=== PATIENT | male | born 1975 | race American Indian/Alaskan Native ===

== ENCOUNTER 2025-08-26 12:38 | Emergency (ER) | payer OTHER, SELFPAY ==
[2025-08-26 12:39] VITALS: BP 120/87
[2025-08-26 14:16] VITALS: BMI 28.6
[2025-08-26 14:28] LABS: Hematocrit 47.2 % (39.0-52.0); Hemoglobin 16.2 g/dL (13.0-18.0); Mean Corp Hgb Conc. 34.3 g/dL (33.0-37.0); Mean Corpuscular Volume 86.1 fL (80.0-94.0); Nucleated Red Blood Cells % 0 % (-); Platelet Count 263 10^3/uL (130-400); Red Cell Dist. Width 12.0 % (11.5-14.5)
[2025-08-26 14:46] LABS: ALT (SGPT) 35 U/L (0-50); AST (SGOT) 36 U/L (17-59); Albumin 5.2 g/dl (3.5-5.0); Alkaline Phosphatase 78 U/L (38-126); Blood Urea Nitrogen 17 mg/dl (9-20); Calcium 9.5 mg/dl (8.4-10.2); Carbon Dioxide 27 mmol/L (22-30); Chloride 103 mmol/L (98-107); Estimated Creatinine Clearance 76 ml/min; Glucose 92 mg/dl (70-99); Lipase 204 U/L (23-300); Potassium 4.7 mmol/L (3.5-5.1); Sodium 138 mmol/L (135-145); Total Protein 8.2 g/dl (6.3-8.2); eGFR > 60.00
[2025-08-26 14:56] LABS: Troponin I < 0.012 ng/ml
--- NOTE | 2025-08-26 15:25 | ED.GENMED ---
History of Present Illness
General
Chief Complaint: Dizziness
Source: patient
Exam Limitations: none
Time Seen by Provider: 08/26/25 15:11
Nursing documentation reviewed up to this point in time: agreed with except (Patient denies abdominal pain to me)
History of Present Illness
History of Present Illness:
50-year-old male with a past medical history of hyperlipidemia presents to the ER for evaluation of lightheadedness and chest discomfort. Patient reports that for the past 5 days or so he has had lightheadedness which he describes as positional
worse with standing also worse when he lays his head back in bed. He says it usually last for about 10 seconds at a time and then resolves. He says that today he woke up with some mild discomfort in the right side of his chest and has been
constant all day and given this new symptom in the context of his recent lightheadedness he decided to come to the ER to be evaluated. He denies any associated palpitations. He denies any shortness of breath. No nausea, vomiting. Triage note
mentions upper abdominal pain�patient denies to me. He denies any pain in the back. He denies having had similar symptoms in the past.
Review of Systems
Review of Systems
All Other Systems: ROS reviewed and negative except as documented in HPI and ROS
Constitutional: Denies fever
Respiratory: Denies cough or trouble breathing
Cardiac: Reports chest pain; Denies palpitations or syncope
ABD/GI: Denies abdominal pain, nausea or vomiting
: Denies flank pain
Musculoskeletal: Denies edema, neck pain or back pain
Neurological: Reports dizzy; Denies headache
Phy Exam
Physical Exam
Physical Exam:
General: Awake, alert, oriented x3; no acute distress
Head: Normocephalic, atraumatic
Eyes: Conjunctiva normal, EOMI without nystagmus, pupils equal round and reactive to light bilaterally
Throat: Airway intact, handling secretions
Neck: Trachea midline, supple without meningismus
Lungs: Clear to auscultation bilaterally, no wheezing, rales, rhonchi
Heart: Regular rate and rhythm, no murmurs, gallops, or rubs
Abd: Soft, non distended, nontender to deep palpation
Neuro: Cranial nerves intact, motor and sensory grossly intact
Extremities: No edema in extremities, no calf tenderness, equal pulses in all extremities
Scores
Heart Failure Risk
Heart Failure Risk Score: Not Applicable
Heart Score for Chest Pain Patients
STEMI patient?: Not applicable
Withdrawal Assessment of Alcohol
Withdrawal Assessment Completed?: Not applicable
Course
Orders/Labs/Results
Orders:
Orders
08/26/25 12:43
Electrocardiogram (*1) Urgent
Reason for Study: Chest Pain
EKG- Treatment ONCE
08/26/25 14:18
Complete Blood Count/With Diff Urgent
Comprehensive Metabolic Panel Urgent
Lipase Urgent
Troponin I Urgent
08/26/25 15:24
CR Chest - 2 Views Urgent
Comment:
Reason For Exam: chest pain
08/26/25 15:25
Orthostatic VS- Treatment ONCE
Abnormal Lab Results
08/26/25
14:18
Neutrophils % 40.7 L %
(42.2-75.2)
Albumin 5.2 H g/dl
(3.5-5.0)
08/26/25 14:18
08/26/25 14:18
Vital Signs
Initial and Last Documented VS:
Initial Vital Signs
Temp Pulse Resp BP Pulse Ox
36.8 C 72 18 120/87 98
08/26/25 12:39 08/26/25 12:39 08/26/25 12:39 08/26/25 12:39 08/26/25 12:39
Last Documented Vital Signs
Temp Pulse Resp BP Pulse Ox
36.8 C 72 18 120/87 98
08/26/25 12:39 08/26/25 12:39 08/26/25 12:39 08/26/25 12:39 08/26/25 15:25
MDM/Problems Addressed
Differential Diagnosis Includes:
Orthostasis, dehydration, electrolyte derangement, dysrhythmia, pericarditis; very low clinical suspicion for ACS, PE or other emergent cause for his chest discomfort
MDM/Problems Addressed:
50-year-old male presents for evaluation of intermittent positional lightheadedness over the past 4 to 5 days today associated with some mild right-sided chest discomfort. Vital signs here are all within normal limits. Physical exam as above. His
EKG shows a sinus rhythm with no acute ischemic changes. Labs were sent in triage including a CBC and a CMP which showed no clinically significant abnormalities. His troponin is undetectable with constant symptoms since this morning�sufficient to
rule out acute coronary syndrome. Check chest x-ray. Will check orthostatic vitals. Will monitor on telemetry and reassess after the above.
Chest x-ray showed no acute disease on my independent review. Orthostatic vitals negative. Clinical reassessment patient's vitals remained within normal limits. At this point very low clinical suspicion for emergent pathology, stable for
discharge to follow-up with primary care physician for further assessment of his symptoms. Discussed with patient regarding follow-up plan and return precautions in detail. All questions answered.
*Radiology
Radiology exam reviewed: preliminary read by ED provider
*Pulse Oximetry
SaO2: 98
Oxygen Mode of Delivery: Room air
Patient hypoxic: no (98%)
*EKG
Interpreted by ED Provider?: Yes
Heart Rate: 66
Rate: normal
Rhythm: sinus
[place]: normal axis
Interval: normal interval
QRS Pattern: normal QRS
Ischemia: no ischemia
*Critical Care Note
Total Time (30-74mins, 75-104mins- exclusive of procedures): Not Applicable
Data Reviewed
Source: patient
ED Attending Note
-
Portions of this chart may have been created with voice recognition software.� Occasional wrong word or��sound alike� substitutions may have occurred due to the inherent limitations of voice recognition software.
Discharge Plan
Departure
Patient Disposition: Home (Routine Discharge)
Date of Disposition: 08/26/25
Time of Disposition: 16:57
Patient with high blood pressure during this ER visit?: No
Discharge Problem:
Lightheadedness, Chest pain
Instructions: Dizziness in adults - ED (DC), Chest Pain PCP Follow Up
Referrals:
UNKNOWN - PT DOES,NOT KNOW [Family Provider]
Activity Restrictions/Additional Instructions:
Thank you for visiting the Emergency Department at [facility].
1. Please schedule a follow up appointment as directed. Call first thing tomorrow morning to make an appointment.
2. If indicated, please take your medications as instructed and indicated on discharge paperwork.
3. If any of your symptoms do not improve, or persist, or become more severe within 6-12 hours, please return to the emergency department for further care.
4. Please return to the emergency department if you develop a headache, neck pain/stiffness, fever greater than 100.4F, chest pain, shortness of breath, persistent nausea, vomiting, slurred speech, difficulty walking, numbness/tingling, weakness,
signs of infection or any other symptoms that are worrisome to you.
Please call [phone] if you have any questions.
Interventions
Interventions:
*Risk Screen - Suicide Last Done: 08/26/25 12:42
*General Assessment Last Done: 08/26/25 14:18
*Neglect/Abuse Screening Last Done: 08/26/25 12:42
*ED- Fall Risk Assessment Last Done: 08/26/25 14:18
*ED COVID-19 Vaccine History Last Done: 08/26/25 14:18
*ED Influenza Vaccine History Last Done: 08/26/25 14:18
ED- Neurological Assessment Last Done: 08/26/25 14:40
ED Swallowing Screen Last Done: 08/26/25 15:56
Discharge Date and Time
Print Language: FRENCH
[2025-08-26 16:07] VITALS: BP 109/76; BP 109/79; BP 111/62; PULSE 58; PULSE 59; PULSE 61
[2025-08-26 16:53] VITALS: BP 114/78
[2025-08-26 17:00] VITALS: BP 126/75
== END 2025-08-26 17:13 | disposition home or self-care (01) ==
LOC: EMR 12:38
PROVIDERS: Emergency Medicine; EMERGENCY PHYSICIAN Emergency Medicine
DX: R42 Dizziness and giddiness (principal); R07.9 Chest pain, unspecified; E78.5 Hyperlipidemia, unspecified
CPT/HCPCS: 99284; 71046; 80053; 83690; 84484; 85025; 93005

== ENCOUNTER → 2025-10-29 09:40 | Outpatient (REF) | payer OTHER, SELFPAY | LOC: RAD 09:40 | PROVIDERS: ATTENDING PHYSICIAN Internal Medicine; FAMILY PHYSICIAN Family Medicine | DX: B18.1 Chronic viral hepatitis B without delta-agent (principal) | CPT/HCPCS: 76700; 93975 ==

== ENCOUNTER 2025-11-12 06:19 | Day surgery (SDC) | payer OTHER, SELFPAY | END 2025-11-12 10:05 | disposition home or self-care (01) | LOC: GI 06:19 | PROVIDERS: ATTENDING PHYSICIAN Internal Medicine | DX: Z12.11 Encounter for screening for malignant neoplasm of colon (principal); K63.5 Polyp of colon; D12.2 Benign neoplasm of ascending colon; D12.3 Benign neoplasm of transverse colon; K64.8 Other hemorrhoids; Z80.0 Family history of malignant neoplasm of digestive organs | CPT/HCPCS: 45385; 45380; 88305 ==